=== PATIENT | male | born 1975 | race Caucasian/White ===

== ENCOUNTER 2024-11-15 06:02 | Day surgery (SDC) | payer BC ==
[2024-11-15] MEDS ORDERED: Nimbex 20MG/10 Ml Vial (HIGH RISK MED) IV ONE (06:03)
[2024-11-15] MEDS: NEURONTIN PO ONE (06:14)
[2024-11-15] MEDS: TYLENOL EXTRA STRENGTH 500 MG PO ONE (06:14)
[2024-11-15] MEDS: Decadron 4 MG PO ONE (06:14)
[2024-11-15] MEDS: Transderm Scop 1.5MG Patch TOP ONE (06:15)
[2024-11-15] MEDS: CEFAZOLIN 2 GM/100 ML NaCl 2 GM/100 ML IVPB IV SCH (06:15)
[2024-11-15] MEDS: celeBREX 100 MG PO ONE (06:15)
[2024-11-15] MEDS: Lactated Ringers 1,000 ML IV SCH (06:15)
[2024-11-15 06:20] VITALS: RESP 18
[2024-11-15] MEDS ORDERED: Epinephrine Preservative Free 1 MG/ML ONE ×2 (06:25)
[2024-11-15] MEDS ORDERED: propofoL IV ONE (06:31)
[2024-11-15] MEDS ORDERED: Zofran 4 MG/2 ML VIAL ONE (06:32)
[2024-11-15] MEDS ORDERED: ROCURONIUM BROMIDE IV ONE ×2 (06:32→09:08)
[2024-11-15] MEDS ORDERED: Xylocaine-Mpf 2% 5 Ml Vial ONE (06:32)
[2024-11-15] MEDS ORDERED: Versed 2 MG/2 ML Injection ONE (06:34)
[2024-11-15] MEDS ORDERED: SUBLIMAZE 100 MCG/2 ML ONE ×2 (06:34→11:51)
[2024-11-15] MEDS ORDERED: EXPAREL 133 MG/10 ML VIAL IJ ONE (06:40)
[2024-11-15] MEDS ORDERED: Marcaine Mpf 0.5% Vial 30 Ml ONE (06:40)
[2024-11-15] MEDS ORDERED: Pre-Attached Lta Kit TP ONE (08:11)
--- NOTE | 2024-11-15 10:19 | XRAY ---
Indication: Left ankle arthroscopy with complete synovectomy, lateral ankle stabilization, and exotectomy dorsal navicular. Intraoperative fluoroscopy provided for 2 minutes 31 seconds. Numerous digital spot and cine images submitted for interpretation demonstrates instrumentation talonavicular joint. Correlate with intraoperative findings/report.
[2024-11-15 10:30] LABS: Appearance Clear (Clear); Bacteria None Seen /HPF (None Seen); Bilirubin Negative (Negative); Blood Small (Negative); Epithelial Cells None Seen /HPF (None Seen); Glucose, Urine Negative (Negative); Hyaline Casts NONE SEEN /LPF (0-2); Ketones Negative (Negative); Leukocyte Esterase Negative (Negative); Nitrite Negative (Negative); Ph 5.5 (4.6-8.0); Protein,Urine Dip Negative (Negative); Urobilinogen 0.2 mg/dL (0.2); WBC 0-2 /HPF (0-5)
[2024-11-15] MEDS ORDERED: ROBINUL ONE (11:12)
[2024-11-15] MEDS ORDERED: BLOXIVERZ IV ONE (11:12)
[2024-11-15] MEDS ORDERED: Sodium Chloride 0.9% 1000 ML 1,000 ML ONE (11:23)
[2024-11-15] MEDS ORDERED: KEFZOL 1 GM ONE (12:00)
[2024-11-15] MEDS ORDERED: BREVIBLOC 100 MG/10 ML IV ONE (12:11)
--- NOTE | 2024-11-15 12:23 | XRAY ---
Indication: Left partial calcanectomy with Achilles tendon transfer. Intraoperative fluoroscopy provided for 50 seconds. 6 digital spot images demonstrates tunnel radiolucency posterior calcaneus with plantar orthopedic button. Correlate with intraoperative findings/report.
[2024-11-15] MEDS ORDERED: DEXMEDETOMIDINE 80 MCG/20ML-NS IV ONE (12:40)
[2024-11-15 13:40] VITALS: PULSE 91; TEMP 97.1; O2SAT 94
[2024-11-15 13:52] VITALS: BP 120/79
--- NOTE | 2024-11-15 14:48 | XRAY ---
50 seconds of fluoroscopy was used in surgery for a left partial calcanectomy with Achilles tendon transfer.
--- NOTE | 2024-11-15 14:48 | XRAY ---
Two minutes and 31 seconds of fluoroscopy was used in surgery for a left ankle arthroscopy with complete synovectomy, lateral ankle stabilization, and exotectomy dorsal navicular.
--- NOTE | 2024-11-16 10:33 | OP ---
SURGERY DATE/TIME: 11/15/2024 [id number] PREOPERATIVE DIAGNOSES: 1) Left ankle pain. 2) Left foot pain. 3) Ankle synovitis. 4) Navicular exostosis. 5) Talus exostosis. 6) Fibular exostosis. 7) Lateral ankle instability. 8) Achilles tendinitis, insertional. 9) Peroneus brevis tendonitis. 10) Peroneus longus tenosynovitis. 11) Calcaneal exostosis with bone marrow edema. 12) Plantar fasciitis. POSTOPERATIVE DIAGNOSES: 1) Left ankle pain. 2) Left foot pain. 3) Ankle synovitis. 4) Navicular exostosis. 5) Talus exostosis. 6) Fibular exostosis. 7) Lateral ankle instability. 8) Achilles tendinitis, insertional. 9) Peroneus brevis tendonitis. 10) Peroneus longus tenosynovitis. 11) Calcaneal exostosis with bone marrow edema. 12) Plantar fasciitis. PROCEDURE: 1) Ankle arthroscopy with complete synovectomy, left ankle. 2) Navicular exostectomy. 3) Talus exostectomy. 4) Fibular exostectomy. 5) Lateral ankle stabilization with Brostrom-Rodriguez modification. 6) Achilles tendon debridement with excision. 7) Debridement of peroneus brevis. 8) Peroneus longus tenosynovectomy. 9) Calcaneal exostectomy. 10) Flexor hallucis longus tendon transfer to calcaneus. 11) Plantar fasciotomy. SURGEON: Rodriguez Delgado DPM [employer] MANAGER: Kelvin Maldonado NP ANESTHESIA: General anesthesia plus a preoperative femoral and popliteal block. See anesthesia report for details. HEMOSTASIS: A thigh tourniquet set to 300 mmHg for a total of 75 total tourniquet minutes and then let down for a period over 15 minutes and then reinflated for approximately 55 total tourniquet minutes. ESTIMATED BLOOD LOSS: Approximately 10 mL. MATERIALS: 1) One 2.9 JuggerKnot with broadband to a 2.9 Betalink. 2) Two 1.45 JuggerKnots and then a 2.9 ToggleLoc with a 6 mm tunnel. 3) 4-0 Monocryl, 3-0 Nylon. 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 Patient's first procedure was at 2 years old for a tendon Achilles lengthening for which he still has the scars. 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 Patient has developed a significant amount of pain due to ankle instability. His job requires a significant amount of pivoting, and this has caused a significant amount of pain to the lateral aspect of his ankle in this respect which has progressed to the entirety of his ankle. Patient also has significant pain with dorsiflexion and long periods of weightbearing associated with some exostosis at the dorsal aspect of the navicular and the talus as well as when his foot is in dorsiflexion, he does have some impingement of the talar exostosis against the tibia. Patient also has a significant amount of insertional Achilles tendonitis that was inspected on an MRI demonstrating significantly diseased tendon in the distal one-third of the Achilles tendon just distal to a calcification within the tendon itself. From that standpoint, options were discussed with the patient in regard to assessment and plan. Patient has failed many years of conservative therapy, and at this time wishes to proceed with surgical intervention. Plenty of time was allowed for the patient to ask questions which were answered to his and his girlfriend's apparent satisfaction. No guarantees were provided as to the outcome. However, the purpose of this is to reduce pain and improve function overall so that the patient may continue to work. Given his residual club foot, patient will likely have to progress given his job for a fusion or a joint replacement in the future or a combination of which he has been made aware of at this time. All results of this procedure are expected to be temporary. Patient has been made aware of all the risks, complications and benefits at this time including but not limited to infection, hematoma, seroma, possibility of delayed wound healing, non-wound healing, possibility of failure of surgical intervention, possible need for further surgical intervention at a later date. It is at this time patient has signed a consent and we have decided to proceed. DESCRIPTION OF PROCEDURE AND FINDINGS: Patient was brought into the PACU prior to the procedure and provided a femoral and popliteal block. See anesthesia report for details. Following this, the patient was brought in the operating room, placed on the operating room table in the supine position. General anesthesia was administered until the patient was adequately sedated. The left thigh had a well-padded tourniquet applied to it and the tourniquet was set to 300 mmHg. The left lower extremity was prepped and draped in the typical sterile fashion and lowered onto the surgical field at this time. At the anterior aspect of the ankle inspecting landmarks of the medial malleolus, lateral malleolus and palpable dell of the foot in dorsiflexion of the ankle joint and dorsal aspect of the talar dome were palpated and lines were drawn to identify the joint line. Once this was done, anteromedial portal was established, first insufflating approximately 30 mL of lactated Ringer's into the anterior medial utilizing an 18 gauge needle. Once this was performed, an 11 blade was utilized to make a skin deep incision which was carried down to the level of the capsule and punctured utilizing a curved mini hemostat. An obturator and trocar were then introduced into the incision. The obturator was then removed; and through the trocar a 4.0 mm, 30-degree camera was introduced inspecting the joint. There was a significant amount of hemorrhagic synovitis within the joint making it nearly impossible to see the joint line. Decision was made to introduce the shaver at this time prior to joint inspection in order to clean up some area for further inspection of the joint. An 11 blade was utilized just the same to make and incision in the skin, being careful not damage any superficial peroneal nerve. This was carried down utilizing a curved blunt mini hemostat to the level of the capsule where the 3.4 mm shaver was then introduced and the debridement took place. Hemorrhagic synovitis was removed with the shaver. Significant amount of synovitis was identified at the anterior aspect of the tibia and a significant amount of delaminated cartilage was identified. A combination of graspers were utilized to remove constrictures as well as delaminated portions of the cartilage. However, the overall quality of the cartilage was inspected and probed for any weakness or osteochondral defects of which none were found. From that standpoint, the shaver was switched from portals, and the arthroscope and shaver were switched from anterolateral to anteromedial and anteromedial to anterolateral inspecting the medial and lateral gutters, cleaning of any residual synovitis. Once this was performed, these were retracted out of the site. The Esmarch was utilized to exsanguinate the leg. A small incision measuring approximately 3 cm was carried down just lateral to the tibialis anterior tendon in the footprint of the talar exostosis and the navicular exostosis. This was carried down making sure to retract the deep peroneal nerve and any neurovascular structures laterally and outside of the field of the exostosis. This was carried down utilizing careful dissection making sure not to damage any neurovascular structures. Once the exostoses were identified, both of them were rongeured and then hand rasped from this site. Copious amounts of sterile saline were utilized to flush the surgical site. Fluoroscopic guidance was utilized at this time to assess how much had been taken off and also range of motion with foot in dorsiflexion to prevent any further impingement. At this time, an anterior drawer maneuver was performed as well as a talar tilt demonstrating significant laxity of the ATFL. However, CFL was relatively intact. Decision was made to proceed with a lateral ankle stabilization for where a hockey stick-type incision was made over the posterior one-third of the fibular in order to better assess the peroneal tendons later on in the case to the anterior process of the calcaneus. Once this was performed, careful dissection was carried down utilizing blunt dissection to the level of the ATFL and CFL. On initial inspection of the ATFL, there was some laxity and disease at the proximal footprint for which it was resected. At this time, once resecting this, we did find a fibular exostosis which was part of an old fracture that the patient had sustained, an avulsion fracture, and decision was made to remove this exostosis from the fibula which was handed off the field for pathological assessment. At this time, the ATFL was the reflected. Inspecting the CFL, there was some disease at the footprint of the CFL which was then reflected off of that surface. The drill for the 2.9 JuggerKnot was placed into the body of the talus making sure not to violate the ankle or the subtalar joint in approximately a 45-degree angle relative to the lateral surface of the talar neck which was severely atavistic secondary to the patient's residual club foot. Once the position was assessed and deemed to be in an adequate position, the drill was carried down and a 2.9 JuggerKnot was inserted into the footprint. Following this, the drill into the fibula was carried out utilizing a broadband to a 2.9 Betalink which was secured with the foot in a dorsiflexed and slightly everted position. Once this performed, two 1.45 JuggerKnots were introduced into the fibula making sure not to violate the tibiotalar joint. Once this was performed, a [id number] type suturing of the ATFL and CFL ligaments were carried out on the first pass; and then following this, the inferior extensor retinaculum was captured to beef up the construct. Once this was performed, a new anterior drawer was obtained demonstrating significant improvement in the patient's instability of the left ankle. Following this, an incision was made directly posterior to the fibula through the same incision inspecting the peroneal tendons. A large moreno of tenosynovitis and synovial fluid rushed out of the synovial sheath. On inspection, there was a significant amount of a very synovitic tenosynovitis of the peroneus longus which was debrided off of this tendon. Inspected of the demonstrated no significant tearing or repair necessary. To the peroneus brevis there was a low-lying muscle belly as well as some tenosynovitis that was debrided off of the face. However, this took up less than 10% of the face of the tendon itself and a low-lying muscle belly was debrided from that standpoint. Copious amounts of sterile saline were utilized to flush the surgical site. 4-0 Monocryl was utilized to coapt the subcutaneous skin edges for the incision at the lateral aspect of the leg and then 3-0 nylon was utilized to coapt the skin edges in a horizontal mattress type fashion for both the dorsal and the lateral incision. The arthroscopic holes were then coapted utilizing simple interrupted sutures. At this time, the tourniquet was let down, and a temporary dressing was placed. Patient was then flipped to a prone position carefully and then reprepped and draped in the typical sterile fashion. At this time, an Esmarch was utilized to exsanguinate the leg once again, and the tourniquet was inflated to 300 mmHg. Once this was performed, insertion of the Achilles tendon was identified and landmarks were identified showing a very severely thickened Achilles tendon. When incision was made down, this was made full-thickness down to the level of the paratenon where minimal undermining was taking place. Inspection of the tendon demonstrated a significant amount of disease in the distal one-third of the tendon which correlated with the MRI findings. From that standpoint, the calcific tendinosis was excised first, examining the caliber of the tendon that was remaining. What was left of the tendon was essentially nonviable and disease-ridden with yellowing and disorganized collagen orientation. Decision was made at this time to proceed with excision of the Achilles tendon in its entirety. This was carried out utilizing a combination of 10 blades, rongeurs and pickups. Once this was performed, the remaining viable Achilles tendon was left in its place. The exostosis at the posterior aspect of the calcaneus was then shaved down utilizing a 31 mm sagittal saw and then a power rasp preparing the surface for the tendon transfer of which the FHL was harvested by flexing the great toe inwards and pulling on the flexor hallucis cutting well into the tendon to preserve as much length as humanly possible. Once this was performed, a whipstitch was applied onto the FHL. A drill hole was utilized making a 6 mm tunnel which was sizing the tendon prior to its transfer and then a 2.9 ToggleLoc with a loop suture were then utilized to pull the tendon into the intended hole in the calcaneus, making sure not to violate the weightbearing surface. Once this was performed, tendon was assessed and deemed to be in adequate position for adhesion to the calcaneus. Once this was performed, final pictures were taken. An instep fasciotomy was performed utilizing a 15 blade, pickups, and debriding the adipose layer on the plantar aspect of 1.5 cm from the weightbearing surface of the arch over the medial band of the plantar fascia. Once this was performed, the one-third of the plantar fascia band was then resected utilizing a sharp pair of tenotomy scissors. Once this was performed, copious amounts of sterile saline were utilized to flush the surgical site. For the posterior ankle incision, 4-0 Monocryl and 3-0 nylon was utilized in a simple interrupted buried type fashion and a horizontal mattress type fashion to coapt the skin. For the plantar incision, simple interrupteds were utilized to prevent scar tissue formation. Once this was performed, copious amounts of sterile saline was utilized to flush the surgical sites. All incisions were coapted and then a dressing consisting of Betadine, Adaptic, 4 x 4, Kerlix, ABD and a well-padded posterior splint with sugar tong was applied to the patient's left lower extremity with the foot slightly plantarflexed relative to the longitudinal axis of the leg. Patient was then reversed from anesthesia and returned to the postoperative anesthesia care unit with vital signs stable and vascular status intact. Patient handled the anesthesia as well as the procedure without significant complication. Postoperative orders as indicated in the patient's discharge chart.
== END 2024-11-15 14:13 | disposition home or self-care (01) ==
LOC: SDC 06:02
PROVIDERS: ATTEND Podiatrist Foot & Ankle Surgery
DX: M65.872 Other synovitis and tenosynovitis, left ankle and foot (principal); M25.572 Pain in left ankle and joints of left foot; M79.672 Pain in left foot; M89.8X7 Other specified disorders of bone, ankle and foot; M25.372 Other instability, left ankle; M76.62 Achilles tendinitis, left leg; S93.402A Sprain of unspecified ligament of left ankle, initial encounter; M72.2 Plantar fascial fibromatosis; M77.32 Calcaneal spur, left foot
CPT/HCPCS: 27626; 27635; 27654; 27658; 27680; 27698; 28008; 28118; 28120; 28122; 29898; 73610; 73650; 76000; 76937; 81001; 87086; C1713; J0171; J0666; J0690; J2250; J2405; J2704; J2710; J3010; L1830; A9270-GY

== ENCOUNTER 2024-11-16 17:39 | Emergency (ER) | payer BC ==
[2024-11-16 20:34] VITALS: TEMP 98
--- NOTE | 2024-11-16 21:30 | ERPHSYRPT ---
- History of Present Illness Time Seen by Provider: 11/16/24 21:20 Source: patient Exam Limitations: no limitations Patient Subjective Stated Complaint: pt states that he had surgery yesterday with dr. lucia. pt states that he began to bleed from his incision Triage Nursing Assessment: pt came into the er via wheelchair; pt transfer to cot per standby assist; c/o wound check; pt states 8/10 pain to left foot; ortho glass splint and sourav bandage in place; minimal bleeding present on sourav wrap; good cap refill to left foot; no respiratory distress present; hypertensive Physician History: 49-year-old male postop day 1 foot and ankle surgery presents to our emergency department for a postoperative check. Patient was advised to come to our ED if he observed bleeding from the surgical site. Patient states that he observed some bleeding soaking through his Sourav wrap. As per discharge instructions patient presented to our ED for an evaluation. No active bleeding upon our evaluation. Patient resting comfortably. He has oxycodone for pain control. No other complaints. No chest pain or shortness of breath. No nausea vomiting or diaphoresis. Patient voices no other complaints or concerns at this time. Portions of this note were created with voice recognition technology. There may be grammatical, spelling, punctuation or sound alike errors Timing/Duration: today Severity: moderate Modifying Factors: Improves With: nothing Associated Symptoms: denies symptoms Allergies/Adverse Reactions: No Known Drug Allergies Allergy (Verified 11/16/24 20:16) Home Medications: Aspirin EC 325 mg [Ecotrin 325 MG] 325 mg PO DAILY 11/16/24 [History] Gabapentin [Neurontin ] 200 mg PO HS 11/16/24 [History] Oxycodone / APAP 10/325 mg [Oxycodone-Acetaminophen 10-325] 1 tab PO Q6HPRN PRN 11/16/24 [History] cephALEXin [Cephalexin] 500 mg PO TID 11/16/24 [History] Hx Tetanus, Diphtheria Vaccination/Date Given: Yes Hx Influenza Vaccination/Date Given: No Hx Pneumococcal Vaccination/Date Given: No Travel Risk - International Travel Have you traveled outside of the country in past 3 weeks: No - Emerging Infectious Disease Are you exhibiting symptoms associated with any current EIDs: No - Review of Systems Constitutional: No Symptoms, No Fever, No Chills Eyes: No Symptoms Ears, Nose, & Throat: No Symptoms Respiratory: No Symptoms, No Cough, No Dyspnea Cardiac: No Symptoms, No Chest Pain, No Edema, No Syncope Abdominal/Gastrointestinal: No Symptoms, No Abdominal Pain, No Nausea, No Vomit ing, No Diarrhea Genitourinary Symptoms: No Symptoms, No Dysuria Musculoskeletal: No Symptoms, No Back Pain, No Neck Pain Skin: No Symptoms, No Rash Neurological: No Symptoms, No Dizziness, No Focal Weakness, No Sensory Changes Psychological: No Symptoms Endocrine: No Symptoms Hematologic/Lymphatic: No Symptoms Immunological/Allergic: No Symptoms All Other Systems: Reviewed and Negative - Past Medical History Pertinent Past Medical History: Yes Neurological History: No Pertinent History ENT History: No Pertinent History Cardiac History: High Cholesterol Respiratory History: No Pertinent History Endocrine Medical History: No Pertinent History Musculoskeletal History: No Pertinent History GI Medical History: No Pertinent History History: No Pertinent History Psycho-Social History: No Pertinent History Male Reproductive Disorders: No Pertinent History - Past Surgical History Past Surgical History: Yes Neuro Surgical History: No Pertinent History Cardiac: No Pertinent History Respiratory: No Pertinent History Gastrointestinal: Cholecystectomy Genitourinary: No Pertinent History Musculoskeletal: Orthopedic Surgery Male Surgical History: No Pertinent History Other Surgical History: left foot, left ankle/ foot 12/06 Significant Family History: no pertinent family hx - Social History Smoking Status: Former smoker Exposure to second hand smoke: Yes Alcohol Use: Socially Drug Use: none Patient Lives Alone: No - Social Determinants of Health Will the patient participate in the screening: Yes Do you worry about a steady place to live?: No Do you have any problems with any of the following?: No known problems In the past 12 months,have you had to go without utilities?: No Transportation Issues: No Has anyone in your support network made you feel unsafe?: No Have you or anyone in your house had to go without enough: No - Nursing Vital Signs Nursing Vital Signs: Initial Vital Signs Temperature 98 F 11/16/24 20:21 Pulse Rate 90 11/16/24 20:21 Respiratory Rate 18 11/16/24 20:21 Blood Pressure 165/83 11/16/24 20:21 O2 Sat by Pulse Oximetry 98 11/16/24 20:21 Pain Scale Pain Intensity 8 - Physical Exam General Appearance: no apparent distress, alert Eye Exam: PERRL/EOMI, eyes nml inspection Ears, Nose, Throat Exam: moist mucous membranes Neck Exam: normal inspection, full range of motion Respiratory Exam: normal breath sounds, airway intact, No respiratory distress Cardiovascular Exam: regular rate/rhythm, normal peripheral pulses Gastrointestinal/Abdomen Exam: No tenderness, No mass Back Exam: normal inspection, normal range of motion, No CVA tenderness, No vertebral tenderness Extremity Exam: normal inspection, normal range of motion, pelvis stable, other (Postoperative foot ankle is immobilized in a splint. Webril intact. The involved extremities neurovascular intact distally compartments are soft cap refill less than 2 seconds. No active bleeding.) Neurologic Exam: alert, oriented x 3, cooperative, normal mood/affect, nml cerebellar function, nml station & gait, sensation nml, No motor deficits Skin Exam: normal color, warm, dry, No rash Lymphatic Exam: No adenopathy SpO2 Interpretation: normal SpO2: 98 O2 Delivery: Room Air - Course Nursing assessment & vital signs reviewed: Yes - Progress Progress: improved Progress Note: 49-year-old male presents to our ED for evaluation of postoperative bleeding. Patient is postop day 1 today. Patient concerned as there was some bleeding through his Sourav wrap. Upon exam no active bleeding. The involved extremities neurovascular tact distally. No indication for further workup. Wound was redressed with an Sourav wrap. Patient discharged home. Patient will follow-up with Dr. Lucia next week as planned. He voices no other complaints or concerns at this time. Portions of this note were created with voice recognition technology. There may be grammatical, spelling, punctuation or sound alike errors Complexity of problem addressed is moderate acute complicated. No critical care time. Complex of data reviewed and analyzed is none. Diagnosis based on hi story and physical exam. No specialized testing ordered. Risk of complication and or risk of morbidity/mortality of patient management is low. Vital stable. Time spent to discharge patient is approximately 10 minutes. Plan of care established for shared decision making. No social determinants of health present to impede follow-up. Portions of this note were created with voice recognition technology. There may be grammatical, spelling, punctuation or sound alike errors 11/16/24 21:37 Counseled pt/family regarding: diagnosis, need for follow-up - Departure Departure Disposition: Home Clinical Impression: Post-op bleeding Condition: Stable Critical Care Time: No Referrals: CHRISTEN HE MD [Primary Care Provider] - Follow up/PCP as directed Additional Instructions: Discharge/Care Plan FELICE MARSHALL was seen on 11/16/24 in the Emergency Room. The patient was counseled regarding Diagnosis,Lab results, Imaging studies, need for follow up and when to return to the Emergency Room. Prescriptions given: Discharge Note I have spoken with the patient and/or caregivers. I have explained the patient's condition, diagnosis and treatment plan based on the information available to me at this time. I have answered the patient's and/or caregiver's questions and addressed any concerns. The patient and/or caregivers have as good understanding of the patient's diagnosis, condition and treatment plan as can be expected at this point. The vital signs have been stable. The patient's condition is stable and appropriate for discharge from the emergency department. The patient will pursue further outpatient evaluation with the primary care physician or other designated or consulting physician as outlined in the discharge instructions. The patient and/or caregivers are agreeable to this plan of care and follow-up instructions have been explained in detail. The patient and/or caregivers have received these instruction. The patient/and or caregivers are aware that any significant change in condition or worsening of symptoms should prompt an immediate return to this or the closest emergency department or call 911.
[2024-11-16 21:41] VITALS: BP 151/80; PULSE 82; RESP 16; O2SAT 97
== END 2024-11-16 21:40 | disposition home or self-care (01) ==
LOC: ED 17:39
DX: L76.22 Postprocedural hemorrhage of skin and subcutaneous tissue following other procedure (principal); E78.5 Hyperlipidemia, unspecified; Z79.891 Long term (current) use of opiate analgesic; Z79.899 Other long term (current) drug therapy
CPT/HCPCS: 99281